=== PATIENT | male | born 1940 | race Caucasian/White ===

== ENCOUNTER 2024-06-18 06:08 | Day surgery (SDC) | payer OTHER, SELFPAY ==
[2024-06-09 13:46] LABS: % Eosinophils 5.5 % (0-6); % Immature Granulocytes 0.3 % (0-0.5); % Lymphocytes 28.6 % (20.5-51.1); % Monocytes 7.6 % (1.7-9.3); Absolute Basophils 0.1 10^3/uL (0-0.2); Absolute Eosinophils 0.4 10^3/uL (0-0.7); Absolute Lymphocytes 2.1 10^3/uL (1.2-3.4); Absolute Monocytes 0.6 10^3/uL (0.1-0.6); Absolute Neutrophils 4.1 10^3/uL (1.4-6.5); Hematocrit 39.8 % (39.0-52.0); Hemoglobin 13.7 g/dL (13.0-18.0); Mean Corp Hgb Conc. 34.4 g/dL (33.0-37.0); Mean Corpuscular Hgb 32.5 pg (27.0-31.0); Mean Corpuscular Volume 94.5 fL (80.0-94.0); Mean Platelet Volume 9.2 fL (7.4-10.4); Nucleated Red Blood Cells % 0 % (-); Platelet Count 221 10^3/uL (130-400); Red Blood Cell Count 4.21 10^6/uL (4.70-6.10); Red Cell Dist. Width 13.2 % (11.5-14.5); White Blood Cell Count 7.2 10^3/uL (4.8-10.8)
[2024-06-09 14:27] LABS: Blood Urea Nitrogen 16 mg/dl (9-20); Calcium 9.1 mg/dl (8.4-10.2); Carbon Dioxide 30 mmol/L (22-30); Chloride 103 mmol/L (98-107); Glucose 106 mg/dl (70-99); Potassium 4.3 mmol/L (3.5-5.1); Sodium 141 mmol/L (135-145); eGFR > 60.00
[2024-06-10 14:01] VITALS: BMI 33.5
[2024-06-18] VITALS (16 sets, daily range): BP systolic 86–161; BP diastolic 57–77; BMI 33.5
[2024-06-18] MEDS: TYLENOL 1000 MG PO (07:46)
[2024-06-18] MEDS: CELEBREX 200 MG PO (07:48)
--- NOTE | 2024-06-18 08:04 | PTCARENOTE ---
Patients medical clearance is not in the computer. Edith from pre[facility]missions called and asked to look into finding medical clearance. Merino Chute Tender told Dr. Thorpe that we may not be able to find medical clearance and Dr. Thorpe aware. Patient
brought over for block prior to medical clearance being found and both MD Dr. Galvan and Anesthesia aware.
[2024-06-18] MEDS: DUONEB 3 ML INH (11:20)
== END 2024-06-18 14:12 | disposition home or self-care (01) ==
LOC: SDS 06:08
PROVIDERS: ATTENDING PHYSICIAN Specialist; FAMILY PHYSICIAN Internal Medicine; REFERRING PHYSICIAN Internal Medicine Cardiovascular Disease
DX: M75.121 Complete rotator cuff tear or rupture of right shoulder, not specified as traumatic (principal); M75.41 Impingement syndrome of right shoulder
CPT/HCPCS: 29827; 29826; 36415; 80048; 85025; 93005; 94640; C1713